=== PATIENT | female | born 1995 | race Caucasian/White ===

== ENCOUNTER 2018-03-04 03:52 | Emergency (ER) | payer BC ==
[~2018-03-04] VITALS: Ht 154.9 cm; Wt 65.2 kg
[2018-03-04 04:03] VITALS: BP 142/94
== END 2018-03-04 05:35 | disposition home or self-care (01) ==
LOC: ER 03:55
DX: J02.9 Acute pharyngitis, unspecified (principal); L53.8 Other specified erythematous conditions; Z98.890 Other specified postprocedural states
CPT/HCPCS: 87081; 87880; 99283